=== PATIENT | female | born 1950 | race Caucasian/White ===

== ENCOUNTER → 2025-01-24 14:38 | Outpatient (REF) | payer MEDICARE, SELFPAY | LOC: HWRAD 14:38 | PROVIDERS: ATTENDING PHYSICIAN Student in an Organized Health Care Education/Training Program; FAMILY PHYSICIAN Student in an Organized Health Care Education/Training Program | DX: J06.9 Acute upper respiratory infection, unspecified (principal) | CPT/HCPCS: 71046 ==